=== PATIENT | female | born 1950 | race Caucasian/White ===

== ENCOUNTER 2021-10-28 21:07 | Outpatient (REF) | payer MEDICARE, BC, SELFPAY ==
--- OUTSIDE RECORDS SUMMARY | 2021-10-28 21:16 | XMS_ITS | CCD ---
:1950 Author Care Team Providers Name Role Phone Zenaida FONG Attending Physician Unavailable Vital Signs Unknown or Not Available. Allergies Unknown or Not Available. Procedures Unknown or Not Available. History of Immunizations Unknown or Not Available. Problems Unknown or Not Available. Results Unknown or Not Available. Active Medications Unknown or Not Available. Medications Administered During Visit Unknown or Not Available. Encounters Encounter Diagnosis Diagnosis Code Start Date Screening mammography [id number] 08/24/2021 Social History Smoking Status Code Start Date End Date Never smoker [id number] Patient Decision Aids Unknown or Not Available. Discharge Instructions You were admitted to [facility] on 08/24/2021 14:20 with a principal diagnosis of Encounter for screening hu mogram for malignant neoplasm of breast You were discharged from [facility] on 08/24/2021 14:20 Should you have any questions prior to d ischarge, please contact a member of your healthcare team. If you have left the ho spital and have any questions, please contact your primary care physician. Chief Complaint and Reason For Visit Chief Complaint Date of Onset SCREENING Function Status Unknown or Not Available. Plan of Care Unknown or Not Available. Referral/Transition of Care Unknown or Not Available.
[2021-10-28 21:50] LABS: Hemoglobin A1C 6.4 % (<5.7)
[2021-10-28 21:53] LABS: ALT 23 U/L (14-59); AST 19 U/L (15-37); Albumin 3.9 g/dL (3.4-5.0); Alkaline Phosphatase 98 U/L (46-116); Anion Gap 8.8 mmol/L (3-11); BUN 24 mg/dL (7-18); Bilirubin, Total 0.4 mg/dL (0.2-1.0); CO2 28.2 mmol/L (21.0-32.0); CREATININE 0.7 mg/dL (0.55-1.02); Calcium 9.2 mg/dL (8.5-10.1); Calculated LDL 216 mg/dL (<100); Chloride 105 mmol/L (98-107); Cholesterol 306 mg/dL (<200); Glucose 99 mg/dL (74-106); HDL Cholesterol 55 mg/dL (40-60); Sodium 142 mmol/L (136-145); Total Protein 7.3 g/dL (6.4-8.2); Triglyceride 178 mg/dL (<150)
== END 2021-10-28 21:08 | disposition home or self-care (01) ==
LOC: NCHCN 21:07
PROVIDERS: PCP Family Medicine; Visit Provider Family Medicine
DX: R73.03 Prediabetes (principal); E66.3 Overweight
CPT/HCPCS: 80053; 80061; 83036

== ENCOUNTER 2023-11-03 15:15 | Outpatient (REF) | payer MEDICARE, BC, SELFPAY ==
[2023-11-03 21:06] LABS: HCT 40.4 % (36.0-46.0); HGB 13.3 g/dL (11.2-15.7); MCH 31.1 pg (27.0-33.0); MCHC 32.9 % (32.0-36.0); MCV 95 fL (80-95); MPV 10.4 fL (8.0-11.0); Platelet Count 239 10^3/uL (130-400); RBC 4.27 10^6/uL (3.93-5.22); RDW 12.9 % (11.7-14.6); RDW-SD 44.2 fL; WBC 6.77 10^3/uL (4.4-10.8)
[2023-11-03 21:25] LABS: ALT 31 U/L (14-59); AST 22 U/L (15-37); Alkaline Phosphatase 97 U/L (46-116); Anion Gap 6.9 mmol/L (3-11); BUN 24 mg/dL (7-18); Bilirubin, Total 0.5 mg/dL (0.2-1.0); CO2 33.1 mmol/L (21.0-32.0); CREATININE 0.9 mg/dL (0.55-1.02); Calcium 9.6 mg/dL (8.5-10.1); Calculated LDL 66 mg/dL (<100); Chloride 105 mmol/L (98-107); Cholesterol 162 mg/dL (<200); Glucose 110 mg/dL (74-106); HDL Cholesterol 61 mg/dL (40-60); Potassium 4.9 mmol/L (3.5-5.1); Sodium 145 mmol/L (136-145); TSH (W/Ref FT4) 5.93 uIU/mL (0.36-3.74); Total Protein 7.4 g/dL (6.4-8.2); Triglyceride 176 mg/dL (<150)
[2023-11-03 21:26] LABS: Hemoglobin A1C 6.4 % (<5.7)
[2023-11-03 21:42] LABS: FREE T4 0.68 ng/dL (0.76-1.46)
== END 2023-11-03 15:16 | disposition home or self-care (01) ==
LOC: NCHCN 15:15
PROVIDERS: PCP Family Medicine; Visit Provider Family Medicine
DX: E78.5 Hyperlipidemia, unspecified (principal); R73.03 Prediabetes
CPT/HCPCS: 80053; 80061; 85027; 83036; 84439; 84443

== ENCOUNTER 2024-01-09 15:52 | Outpatient (REF) | payer MEDICARE, BC, SELFPAY ==
[2024-01-09 15:27] LABS: TSH 0.02 uIU/Ml (0.36-3.74)
== END 2024-01-09 15:53 | disposition home or self-care (01) ==
LOC: NCHCN 15:52
PROVIDERS: PCP Family Medicine; Visit Provider Family Medicine
DX: E03.9 Hypothyroidism, unspecified (principal)
CPT/HCPCS: 84443

== ENCOUNTER 2024-04-04 16:03 | Outpatient (REF) | payer MEDICARE, BC, SELFPAY ==
[2024-04-04 15:01] LABS: TSH 0.11 uIU/Ml (0.36-3.74)
== END 2024-04-04 16:04 | disposition home or self-care (01) ==
LOC: NCHCN 16:03
PROVIDERS: PCP Family Medicine; Visit Provider Family Medicine
DX: E03.9 Hypothyroidism, unspecified (principal)
CPT/HCPCS: 84443

== ENCOUNTER 2024-06-05 13:00 | Outpatient (REF) | payer MEDICARE, BC, SELFPAY ==
[2024-06-05 16:35] LABS: TSH 0.53 uIU/mL (0.36-3.74)
== END 2024-06-05 13:01 | disposition home or self-care (01) ==
LOC: NCHCN 13:00
PROVIDERS: PCP Family Medicine; Visit Provider Family Medicine
DX: M85.89 Other specified disorders of bone density and structure, multiple sites (principal); E66.3 Overweight
CPT/HCPCS: 82306; 84443

== ENCOUNTER 2024-11-07 15:20 | Outpatient (REF) | payer MEDICARE, BC, SELFPAY ==
[2024-11-07 21:45] LABS: Hemoglobin A1C 6.4 % (<5.7)
[2024-11-07 21:58] LABS: ALT 32 U/L (14-59); AST 26 U/L (15-37); Albumin 4.2 g/dL (3.4-5.0); Alkaline Phosphatase 102 U/L (46-116); BUN 19 mg/dL (7-18); Bilirubin, Total 0.5 mg/dL (0.2-1.0); CREATININE 0.7 mg/dL (0.55-1.02); Calcium 9.7 mg/dL (8.5-10.1); Calculated LDL 71 mg/dL (<100); Chloride 104 mmol/L (98-107); Cholesterol 144 mg/dL (<200); Glucose 87 mg/dL (74-106); HDL Cholesterol 58 mg/dL (>or=50); Potassium 3.9 mmol/L (3.5-5.1); Sodium 142 mmol/L (136-145); TSH 2.34 uIU/mL (0.36-3.74); Total Protein 7.8 g/dL (6.4-8.2); Triglyceride 78 mg/dL (<150)
== END 2024-11-07 15:21 | disposition home or self-care (01) ==
LOC: NCHCN 15:20
PROVIDERS: PCP Family Medicine; Visit Provider Family Medicine
DX: E03.9 Hypothyroidism, unspecified (principal); R73.03 Prediabetes; Z00.00 Encounter for general adult medical examination without abnormal findings; E78.49 Other hyperlipidemia
CPT/HCPCS: 80053; 80061; 83036; 84443